=== PATIENT | male | born 1965 | race Caucasian/White ===

== ENCOUNTER 2024-10-24 15:57 | Inpatient (IN) | payer OTHER ==
[2024-10-24 16:25] VITALS: BMI 27.4
[2024-10-24] MEDS ORDERED: diazePAM 5 MG TABLET PO PRN (16:44)
[2024-10-24] MEDS ORDERED: BISMUTH SUBSALICYLATE 524 MG/30 ML PO PRN (16:50)
[2024-10-24] MEDS ORDERED: hydrOXYzine PAMOATE 25 MG CAPSULE (FP) PO PRN (16:50)
[2024-10-24] MEDS ORDERED: guaiFENesin 600 MG TABLET.ER (FP) PO PRN (16:50)
[2024-10-24] MEDS ORDERED: NICOTINE POLACRILEX 2 MG LOZENGE BC PRN (16:50)
[2024-10-24] MEDS ORDERED: BENZONATATE 200 MG CAPSULE PO PRN (16:50)
[2024-10-24] MEDS ORDERED: BENZOCAINE/MENTHOL (CHLORASEPTIC ) LOZENGE MM PRN (16:50)
[2024-10-24] MEDS ORDERED: IBUPROFEN 400 MG TABLET (FP) PO PRN (16:50)
[2024-10-24] MEDS ORDERED: DICYCLOMINE HCL 10 MG CAPSULE PO PRN (16:50)
[2024-10-24] MEDS ORDERED: ONDANSETRON *ODT* 4 MG TABLET SL PRN (16:50)
[2024-10-24] MEDS ORDERED: MAG HYDROX/AL HYDROX/SIMETH 30 ML UNIT-DOSE CUP PO PRN (16:50)
[2024-10-24] MEDS ORDERED: LOPERAMIDE HCL 2 MG CAPSULE PO PRN (16:50)
[2024-10-24] MEDS ORDERED: MAGNESIUM HYDROX 2400MG/30ML ORAL SUSPENSION 30 ML CUP PO PRN (16:50)
[2024-10-24] MEDS ORDERED: POLYETHYLENE GLYCOL (HEALTHYLAX) 3350 17 GM PACKET PO PRN (16:50)
[2024-10-24] MEDS: diazePAM 5 MG TABLET PO SCH (18:27)
[2024-10-24] MEDS ORDERED: diazePAM 5 MG TABLET ONE (18:29)
[2024-10-24] MEDS ORDERED: IBUPROFEN 600 MG TABLET (FP) PO ONE (18:30)
[2024-10-24] MEDS: METHOCARBAMOL 500 MG TABLET PO PRN (22:22)
[2024-10-24] MEDS: MELATONIN 5 MG TABLETS PO SCH (22:22)
[2024-10-24] MEDS: THIAMINE 100 MG TABLET PO SCH (22:23)
[2024-10-25] MEDS: diazePAM 5 MG TABLET PO SCH (05:27)
[2024-10-25 10:05] LABS: HEMOGLOBIN 11.9 GM/dL (11.7-16.9); MEAN CELL VOLUME 88.5 fl (80-96); MEAN PLT VOLUME 8.1 fl (7.5-11.1); PLATELET COUNT 194 10^3/uL (134-434); RBC 3.84 M/mm3 (4.00-5.60); RDW 14.4 % (11.9-15.9); WHITE BLOOD COUNT 5.4 K/mm3 (4.0-10.0)
[2024-10-25 10:11] LABS: POTASSIUM 3.9 mmol/L (3.5-5.1)
[2024-10-25 10:17] LABS: CALCIUM 9.1 mg/dL (8.5-10.1)
[2024-10-25 10:18] LABS: ALBUMIN 3.4 g/dl (3.4-5.0); BLOOD UREA NITROGEN 10.6 mg/dL (7-18)
[2024-10-25 10:19] LABS: CREATININE 0.8 mg/dL (0.55-1.3)
[2024-10-25 10:20] LABS: BILIRUBIN,TOTAL 0.5 mg/dL (0.2-1)
[2024-10-25] MEDS: FOLIC ACID 1 MG TABLET (FP) PO SCH (10:58)
[2024-10-25] MEDS: PRENATAL VITAMINS W/ FOLIC ACID TABLET (FP) PO SCH (10:58)
[2024-10-25] MEDS: ACETAMINOPHEN 325 MG TABLET (FP) PO PRN (11:01)
[2024-10-25] MEDS: FLU VACCINE (FLULAVAL) PF 45 MCG/0.5 ML SYRINGE 2024-2025 IM ONE (11:07)
[2024-10-25] MEDS: COLCHICINE 0.6 MG TAB PO SCH (14:53)
[2024-10-25] MEDS: IBUPROFEN 600 MG TABLET (FP) PO PRN (21:45)
[2024-10-25] MEDS: NICOTINE POLACRILEX 2 MG GUM BUC PRN (21:48)
[2024-10-26] MEDS: diazePAM 5 MG TABLET PO SCH (06:09)
[2024-10-26] MEDS: amLODIPine BESYLATE 5 MG TABLET (FP) PO SCH (11:00)
[2024-10-27] MEDS: diazePAM 5 MG TABLET PO ONE (05:59)
[2024-10-27] MEDS ORDERED: NALOXONE (NYS OPIOID OVERDOSE PROGRAM) 4 MG/0.1 ML SPRAY NS PRN (08:00)
[2024-10-27 09:40] VITALS: BP 134/83; PULSE 82; RESP 20; TEMP 98
== END 2024-10-27 10:00 | disposition home or self-care (01) | DRG 775 ==
LOC: YASAS 15:57 → Y3N 18:28
PROVIDERS: ADMIT Allergy & Immunology; ATTEND Surgery
PROC: HZ2ZZZZ Detoxification Services for Substance Abuse Treatment (ICD-10-PCS; principal; 2024-10-24)
DX: F10.230 Alcohol dependence with withdrawal, uncomplicated (principal); F17.210 Nicotine dependence, cigarettes, uncomplicated; I10 Essential (primary) hypertension; M10.9 Gout, unspecified; R76.8 Other specified abnormal immunological findings in serum; Z86.19 Personal history of other infectious and parasitic diseases
CPT/HCPCS: 36415; 80053; 84550; 85027; 86593; 86780; 90656; 93005; 93010; G0008